=== PATIENT | female | born 1950 | race Two or more races ===

== ENCOUNTER 2023-04-21 23:53 | Emergency (ER) | payer OTHER, MEDICAID ==
[~2023-04-21] VITALS: Ht 149.9 cm; Wt 47.7 kg
[2023-04-22 00:11] VITALS: PULSE 120; RESP 20; O2SAT 95
[2023-04-22] MEDS ORDERED: cloNIDine HCL 0.1 MG TAB PO ONE (00:15)
[2023-04-22 01:31] VITALS: BP 150/97
== END 2023-04-22 01:33 | disposition left against medical advice (07) ==
LOC: ER 23:53
DX: R22.42 Localized swelling, mass and lump, left lower limb (principal); M25.572 Pain in left ankle and joints of left foot; Z53.21 Procedure and treatment not carried out due to patient leaving prior to being seen by health care provider
CPT/HCPCS: 73562

== ENCOUNTER 2024-04-17 08:24 | Inpatient (IN) | payer OTHER, MEDICAID ==
[~2024-04-17] VITALS: Ht 147.3 cm; Wt 48.1 kg
--- NOTE | 2024-04-17 08:39 | ECG ---
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
--- NOTE | 2024-04-17 08:53 | ED.PDOC ---
SOB-HPI HPI Comments 74 Y F BIBA with PMHX of COPD, Asthma, and HTN presents to the ED with CC of SOB. Per EMS, patient has been experiencing SOB x3 days; patient was stating at 93% on room air upon arrival to scene. Patient was given albuterol and ipratropium en route to ED. Patient denies any chest pain , fever, chills, body aches or N/V/D. 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 OFFICER History: No Pertinent FACILITIES OFFICER History Family History Family History: Family hx of DM, Family hx of Cancer, Family hx of heart rajeev, Family hx of stroke Social History Smoker: Cigarettes, Less Than 1 Pack/Day Alcohol: Denies ETOH Use Drugs: Denies Drug Use Lives In: Home Constitutional: denies: chills, diaphoresis, fatigue, fever, malaise, sweats, weakness, others EENTM: denies: blurred vision, double vision, ear bleeding, ear discharge, ear drainage, ear pain, ear ringing, eye pain, eye redness, hearing loss, mouth pain, mouth swelling, nasal discharge, nose bleeding, nose congestion, nose pain, photophobia, tearing, throat pain, throat swelling, voice changes, others Respiratory: reports: shortness of breath; denies: cough, hemoptysis, orthopnea, SOB at rest, SOB with excertion, stridor, wheezing, others Cardiovascular: denies: chest pain, dizzy spells, diaphoresis, Dyspnea on exertion, edema, irregular heart beat, left arm pain, lightheadedness, palpitations, PND, syncope, others Gastrointestinal: denies: abdomen distended, abdominal pain, blood streaked bowels, constipated, diarrhea, dysphagia, difficulty swallowing, hematemesis, melena, nausea, poor appetite, poor fluid intake, rectal bleeding, rectal pain, vomiting, others Neurological: denies: dizziness, fainting, headache, left sided numbness, left sided weakness, numbness, paresthesia, pre-existing deficit, right sided numbness, right sided weakness, seizure, speech problems, tingling, tremors, weakness, others Musculoskeletal: denies: back pain, gout, joint pain, joint swelling, muscle pain, muscle stiffness, neck pain, others Integumetry: denies: bruises, change in color, change in hair/nails, dryness, laceration, lesions, lumps, rash, wounds, others Allergic/Immunocompromised: denies: Difficulty Healing, Frequent Infections, Hives, Itching, others Hematologic/Lymphatic: denies: anemia, blood clots, easy bleeding, easy bruising, swollen glands, others Endocrine: denies: excessive hunger, excessive sweating, excessive thirst, excessive urination, flushing, intolerance to cold, intolerance to heat, unexplained weight gain, unexplained weight loss, others Psychiatric: denies: anxiety, bipolar disorder, depression, hopeless, panic disorder, schizophrenia, sleepless, suicidal, others All Other Systems: Reviewed and Negative Physical Exam General Appearance: Moderate Distress, Normal HEENT: Normal ENT Inspection, Pharynx Normal, TMs Normal Neck: Full Range of Motion, Non-Tender, Normal, Normal Inspection Respiratory: Accessory Muscle Use, Chest Non-Tender, Respiratory Distress Cardiovascular: No Edema, No JVD, No Murmur, No Gallop, Normal Peripheral Pulses, Regular Rate/Rhythm Breast Exam: Deferred Gastrointestinal: No Organomegaly, Non Tender, No Pulsatile Mass, Normal Bowel Sounds, Soft Genitalia: Deferred Pelvic: Deferred Rectal: Deferred Extremities: No calf tenderness, Normal capillary refill, Normal inspection, Normal range of motion, Non-tender, No pedal edema Musculoskeletal : Apperance: Normal 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 Was a procedure done?: No Differential Dx Differential Diagnosis: Anxiety, Asthma, Bronchitis, CHF, COPD, Pneumonia, Sinusitis, Pharyngitis, URI X-Ray, Labs, Meds, VS Vital Signs Date Time Temp Pulse Resp B/P (MAP) Pulse Ox O2 Delivery O2 Flow Rate FiO2 04/17/24 09:05 20 100 Nasal Cannula* 4 36 04/17/24 08:57 20 96 Room Air* 0 21 04/17/24 08:35 98 Nasal Cannula* 2 28 04/17/24 08:29 98.9 118 28 145/91 (109) 100 Lab Test 04/17/24 08:08 Range/Units White Blood Count Pending Red Blood Count Pending Hemoglobin Pending Hematocrit Pending Mean Corpuscular Volume Pending Mean Corpuscular Hemoglobin Pending Mean Corpuscular Hemoglobin Concent Pending Red Cell Distribution Width Pending Platelet Count Pending Mean Platelet Volume Pending Neutrophils (%) (Auto) Pending Lymphocytes (%) (Auto) Pending Monocytes (%) (Auto) Pending Basophils (%) (Auto) Pending Neutrophils # (Auto) Pending Lymphocytes # (Auto) Pending Monocytes # (Auto) Pending Sodium Level Pending Potassium Level Pending Chloride Level Pending Carbon Dioxide Level Pending Anion Gap Pending Blood Urea Nitrogen Pending Creatinine Pending Glomerular Filtration Rate Calc Pending BUN/Creatinine Ratio Pending Serum Glucose Pending Calcium Level Pending Troponin I High Sensitivity Pending Current Medications Medications (Trade) Dose Ordered Sig/Alex Route Start Time Stop Time Status Last Admin Albuterol (Ventolin Medneb) 5 mg ONCE ONCE NEB 04/17/24 08:45 04/17/24 08:46 DC 04/17/24 08:57 Ipratropium [place] (Atrovent Medneb) 0.5 mg ONCE ONCE NEB 04/17/24 08:45 04/17/24 08:46 DC 04/17/24 08:57 [place] [id number] Ph: [phone] DIAGNOSTIC IMAGING Diagnostic Imaging Report : [id number] Signed PATIENT: FROYLAN MORAES ACCT: [id number] UNIT: [id number] : 1950 LOC: ER ROOM / BED: / AGE / SEX: 74 / F ADM STATUS: REG ER SERVICE 0839 ORDERING PHYSICIAN: CRYSTAL HOPE MD PROCEDURE(s): CXRP - CHEST PORTABLE REASON: sob ORDER NUMBER(s): [id number], ACCESSION NUMBER(s): [id number] CHEST RADIOGRAPH Indication: sob Technique: Single frontal view of the chest was obtained COMPARISON: None FINDINGS: Lines and Tubes: None Lungs: Clear Pleura: No effusion. No pneumothorax. Cardiomediastinal contours: Unremarkable Bones: Unremarkable IMPRESSION: No acute disease. ATED BY: FAZAL BARAJAS MD DICTATED DATE/TIME: 04/17/24854 SIGNED BY: FAZAL BARAJAS MD SIGNED DATE/TIME: 04/17/24854 CC: Patient alert. Complaining of shortness a breath. COPD. Continues to smoke cigarettes. Denies chest pain. Saturation on room air was 93%. Placed on oxygen. Counseled patient on effects of smoking cigarettes for 15 minutes. EKG does show chronic changes. Was given breathing treatment. Was given steroid. Reviewed her previous visit. Explained to the patient. Time of 1ST Reevaluation: 09:07 Reevaluation 1ST: Unchanged Patient Education/Counseling: Diagnosis, Treatment Family Education/Counseling: No Family Present Departure 1 Departure Time of Disposition: 08:57 Impression: Primary Impression: Acute respiratory failure Qualified Codes: J96.01 - Acute respiratory failure with hypoxia Additional Impressions: COPD exacerbation Pneumonitis Disposition: ADMITTED INPATIENT Admit to: Med Surg Condition: Guarded Critical Care Note Critical Care Time?: Yes (90 min-critical care time only) Stability Stability form required: No Heart Score Heart Score: Heart Score Response (Comments) Value History Slightly Suspicious 0 EKG Normal 0 Age >65 2 Risk Factors >3 or Hx ASHD 2 Troponin Normal limit 0 Total 4 I personally scribed for CRYSTAL HOPE MD ([email or web address]) on 04/17/24 at 08:53. Electronically submitted by Nighat Richter ([email or web address]). I personally scribed for CRYSTAL HOPE MD ([email or web address]) on 04/17/24 at 09:17. Electronically submitted by Nighat Richter ([email or web address]). CRYSTAL HOPE MD Apr 17, 2024 08:53
[2024-04-17] MEDS: IPRATROPIUM BROM 0.5 MG/2.5ML INH SOL NEB ONE (08:57)
[2024-04-17] MEDS: ALBUTEROL SULF 2.5 MG/0.5ML(0.5%) NEB SOLN NEB ONE (08:57)
--- NOTE | 2024-04-17 08:58 | DVH ---
CHEST RADIOGRAPH Indication: sob Technique: Single frontal view of the chest was obtained COMPARISON: None FINDINGS: Lines and Tubes: None Lungs: Clear Pleura: No effusion. No pneumothorax. Cardiomediastinal contours: Unremarkable Bones: Unremarkable IMPRESSION: No acute disease.
[2024-04-17 09:21] LABS: Basophils # (auto) 0 10 ^3/uL (0-0.2); Basophils % (auto) 0.6 % (0.0-2.0); Eosinophils # (auto) 0 10 ^3/uL (0-0.8); Eosinophils % (auto) 0.1 % (0.0-7.0); Hematocrit 41.2 % (36.0-46.0); Hemoglobin 13.7 g/dL (12.2-16.2); Lymphocytes # (auto) 0.5 10 ^3/uL (0.4-5.4); Lymphocytes % (auto) 7.6 % (10.0-50.0); Mean Corpuscular Hemoglobin 32.5 pg (28.0-32.0); Mean Corpuscular Hgb Conc. 33.4 g/dL (32.0-36.0); Mean Corpuscular Volume 97.5 fL (80.0-100.0); Monocytes # (auto) 0.5 10 ^3/uL (0-1.3); Monocytes % (auto) 7.9 % (0.0-12.0); Neutrophils # (auto) 5.1 10 ^3/uL (1.6-8.6); Neutrophils % (auto) 83.8 % (37.0-80.0); Platelet Count (auto) 272 10^3/uL (140-450); Red Blood Cells 4.23 10^6/uL (4.0-5.20); Red Cell Distribution Width 13.7 % (11.8-14.3); White Blood Cell 6.1 10^3/uL (4.4-10.8)
[2024-04-17 09:28] LABS: Chloride 102 mmol/L (98-107); Potassium 3.6 mmol/L (3.5-5.1); Sodium 138 mmol/L (136-145)
[2024-04-17 09:29] LABS: Anion Gap 8 (5-15); Carbon Dioxide 28 mmol/L (20-31)
[2024-04-17 09:34] LABS: Blood Urea Nitrogen 13 mg/dL (9-23)
[2024-04-17 09:41] LABS: Glucose 189 mg/dL (74-106)
[2024-04-17] MEDS: methylPREDNISolone SOD SUCC 125 MG/2 ML VL IV ONE (11:29)
[2024-04-17] MEDS: MAGNESIUM SULFATE 1GM/100ML 100 ML IV ONE (13:37)
[2024-04-17] MEDS ORDERED: DOCUSATE SOD 100 MG CAP PO PRN (17:00)
[2024-04-17] MEDS ORDERED: NITROGLYCERIN 0.4 MG SL TAB SL PRN (17:00)
[2024-04-17] MEDS ORDERED: ONDANSETRON HCL 4 MG/2 ML VIAL IV PRN (17:00)
[2024-04-17] MEDS ORDERED: MORPHINE SULFATE INJ 2 MG/ml SYRG IV PRN (17:00)
[2024-04-17] MEDS: ASPirin-EC 81 mg tab PO ONE (17:06)
[2024-04-17 19:01] VITALS: PULSE 109; RESP 20; O2SAT 98
[2024-04-17] MEDS: ALBUTEROL SULF 2.5 MG/0.5ML(0.5%) NEB SOLN NEB SCH (19:01)
[2024-04-17] MEDS: IPRATROPIUM BROM 0.5 MG/2.5ML INH SOL NEB SCH (19:01)
[2024-04-17 19:09] VITALS: PULSE 97; RESP 22; O2SAT 97
[2024-04-17 20:29] VITALS: BP 146/90; PULSE 101; RESP 20; O2SAT 99
[2024-04-17 21:57] VITALS: PULSE 100; RESP 19; O2SAT 98
[2024-04-17 22:24] VITALS: BP 146/90; PULSE 101; RESP 20; TEMP 99.4; O2SAT 99
[2024-04-17 22:29] VITALS: BP 146/90; PULSE 101; RESP 20; TEMP 99.4; O2SAT 99
[2024-04-17] MEDS: ACETAMINOPHEN 325 MG TAB PO PRN (22:45)
[2024-04-17] MEDS: methylPREDNISolone SOD SUCC 40 MG/ML VL IV SCH (22:45)
[2024-04-17] MEDS ORDERED: INFLUENZA TRIVALENT 2024-2025 0.5 ML INJ IM ONE (23:30)
[2024-04-18] VITALS (22 sets, daily range): BP systolic 112–155; BP diastolic 59–74; PULSE 95–111; RESP 16–22; TEMP 97.8–98.9; O2SAT 90–100
--- NOTE | 2024-04-18 00:16 | DVHHP2 ---
YASMIN MONTERO DIPPER FISH 04/18/24 0016: History of Present Illness Reason for Visit: Shortness of breath History of Present Illness 74-year-old female with past medical history of COPD, asthma, hypertension presents with complaints Of shortness of breath times three days. When EMS encountered the patient, Patient was treated with dual med nebs Which gave the patient temporary relief. At this time patient denies fevers, chills, Dizziness, syncope,Chest pain, nausea, vomiting. Cardiovascular: HTN Pulmonary: Asthma, COPD Smoke: 1 pack per day ALCOHOL: none Drugs: None Lives: with Family Review of Systems Constitutional: No: Fever, Chills, Sweats, Weakness, Malaise, Other Eyes: No: Pain, Vision change, Conjunctivae inflammation, Eyelid inflammation, Other, Redness ENT: No: Ear pain, Ear discharge, Nose pain, Nose discharge, Nose congestion, Mouth pain, Mouth swelling, Throat pain, Throat swelling, Other Respiratory: Shortness of breath; No: Cough, Dry, SOB with excertion, Wheezing, Hemoptysis, Pleuritic Pain, Sputum, Wheezing, Other Cardiovascular: No: Chest Pain, Palpitations, Orthopnea, Paroxysmal Noc. Dyspnea, Edema, Lt Headedness, Other Gastrointestinal: No: Nausea, Vomiting, Abdominal Pain, Diarrhea, Constipation, Melena, Hematochezia, Other Genitourinary: No Dysuria, No Frequency, No Incontinence, No Hematuria, No Retention, No Other Musculoskeletal: No: other, neck pain, shoulder pain, arm pain, back pain, hand pain, leg pain, foot pain Skin: No: Rash, Lesions, Jaundice, Bruising, Other Neurological: No: Weakness, Numbness, Incoordination, Change in speech, Confusion, Seizures, Other Allergies: Coded Allergies: Penicillins (Verified Allergy, Unknown, 04/22/23) Warfarin (Verified Allergy, Unknown, 04/22/23) Medications Current Medications Medications Dose Ordered Sig/Alex Route Start Time Stop Time Status Last Admin Dose Admin Ondansetron HCl 4 mg Q4HP PRN IV 04/17/24 17:00 Docusate Sodium 100 mg BIDPRN PRN PO 04/17/24 17:00 Enoxaparin Sodium 40 mg DAILY SC 04/18/24 10:00 Acetaminophen 650 mg Q6HP PRN PO 04/17/24 17:00 04/17/24 22:45 650 MG Morphine Sulfate 2 mg Q4HPRN PRN IV 04/17/24 17:00 Nitroglycerin 0.4 mg Q5MINP PRN SL 04/17/24 17:00 Morphine Sulfate 2 mg Q30M PRN IV 04/17/24 17:00 Albuterol 2.5 mg Q4HWA [facility] 04/17/24 18:00 04/17/24 19:01 2.5 MG Ipratropium [place] 0.5 mg Q4HWA [facility] 04/17/24 18:00 04/17/24 19:01 0.5 MG Methylprednisolone Sodium Succinate 40 mg Q8HR IV 04/17/24 22:00 04/17/24 22:45 40 MG Exam Vital Signs Vital Signs Date Time Temp Pulse Resp B/P (MAP) Pulse Ox O2 Delivery O2 Flow Rate FiO2 04/17/24 22:29 99.4 101 20 146/90 (108) 99 99.4 04/17/24 21:57 Nasal Cannula* 4 36 General Appearance: Alert, Oriented X3, Cooperative HEENT: Atraumatic, PERRLA, EOMI Respiratory: Clear to auscultation, Other (Diminished air exchange Bilaterally) Cardiovascular: Regular rate, Normal S1, Normal S2 Abdominal: Normal bowel sounds, Soft, No tenderness Extremities: No cyanosis, No edema Skin: No rashes, No breakdown Neuro: Normal speech, Strength at 5/5 X4 ext Psych/Mental Status: Mental status NL, Mood NL Labs/Xrays Labs Test 04/17/24 08:08 Range/Units White Blood Count 6.1 4.4-10.8 10^3/uL Red Blood Count 4.23 4.0-5.20 10^6/uL Hemoglobin 13.7 12.2-16.2 g/dL Hematocrit 41.2 36.0-46.0 % Mean Corpuscular Volume 97.5 80.0-100.0 fL Mean Corpuscular Hemoglobin 32.5 H 28.0-32.0 pg Mean Corpuscular Hemoglobin Concent 33.4 32.0-36.0 g/dL Red Cell Distribution Width 13.7 11.8-14.3 % Platelet Count 272 140-450 10^3/uL Mean Platelet Volume 8.5 6.9-10.8 fL Neutrophils (%) (Auto) 83.8 H 37.0-80.0 % Lymphocytes (%) (Auto) 7.6 L 10.0-50.0 % Monocytes (%) (Auto) 7.9 0.0-12.0 % Eosinophils (%) (Auto) 0.1 0.0-7.0 % Basophils (%) (Auto) 0.6 0.0-2.0 % Neutrophils # (Auto) 5.1 1.6-8.6 10 ^3/uL Lymphocytes # (Auto) 0.5 0.4-5.4 10 ^3/uL Monocytes # (Auto) 0.5 0-1.3 10 ^3/uL Eosinophils # (Auto) 0 0-0.8 10 ^3/uL Basophils # (Auto) 0 0-0.2 10 ^3/uL Nucleated Red Blood Cells 0.0 % Sodium Level 138 136-145 mmol/L Potassium Level 3.6 3.5-5.1 mmol/L Chloride Level 102 98-107 mmol/L Carbon Dioxide Level 28 20-31 mmol/L Anion Gap 8 5-15 Blood Urea Nitrogen 13 9-23 mg/dL Creatinine 0.93 0.550-1.02 mg/dL Glomerular Filtration Rate Calc 65 >90 mL/min BUN/Creatinine Ratio 14.0 10.0-20.0 Serum Glucose 189 H 74-106 mg/dL Calcium Level 10.0 8.7-10.4 mg/dL Troponin I High Sensitivity 7 </=34 ng/L Assessment/Plan Assessment/Plan Acute on Chronic respiratory failure with hypoxia Acute COPD exacerbation Hypertension Nicotine dependence Plan Admit telemetry Bronchodilators. As needed supplemental O2 to maintain O2 saturation greater Than 93%. RT monitoring. IV Steroids. Continue home medication. As needed anti-hypertensive for optimal BP management Nicotine cessation counseling Physical therapy evaluation GI ppx Protonix / DVT ppx lovenox Plan discussed with: Patient Date of Service: Apr 18, 2024 Billing Provider: SHERYL MONTANA MD Common Visit Codes: NOT BILLABLE SHERYL MONTANA MD 04/18/24 1757: Review of Systems Allergies: Coded Allergies: Penicillins (Verified Allergy, Unknown, 04/22/23) Warfarin (Verified Allergy, Unknown, 04/22/23) Additional Comments Additional Comments Additional Comments 74-year-old female with a known history of chronic COPD, chronic respiratory failure on home O2 at 3 L, chronic tobacco use disorder initially presented to the hospital with the increasing shortness a breath and chest pain and back pain found to have 1. Acute on chronic hypoxic respiratory failure secondary to acute COPD exacerbation 2. Acute COPD exacerbation 3. Chronic respiratory failure on home O2 4. Chronic tobacco use disorder 5. Hypertension -continue med nebs, [id number] supplementation Physical therapy evaluation and treatment -incentive spirometry YASMIN MONTERO NP Apr 18, 2024 00:16 SHERYL MONTANA MD Apr 18, 2024 17:57
[2024-04-18 01:16] LABS: Urine Bacteria FEW /hpf (None Seen); Urine Blood Negative /uL (Negative); Urine Clarity Clear (Clear); Urine Color Light-Yellow (Yellow); Urine Protein, UAD TRACE (Negative); Urine Specific Gravity 1.017 (1.001-1.035); Urine Squamous Epithelial Cell FEW /hpf (<5); Urine Urobilinogen Normal (Negative); Urine WBC 1 /hpf (0 - 5); Urine pH 5.5 (5.0-9.0)
[2024-04-18 09:53] LABS: Basophils # (auto) 0 10 ^3/uL (0-0.2); Basophils % (auto) 0.1 % (0.0-2.0); Eosinophils # (auto) 0 10 ^3/uL (0-0.8); Hematocrit 35.6 % (36.0-46.0); Hemoglobin 12.1 g/dL (12.2-16.2); Lymphocytes # (auto) 0.2 10 ^3/uL (0.4-5.4); Lymphocytes % (auto) 6.3 % (10.0-50.0); Mean Corpuscular Hemoglobin 32.8 pg (28.0-32.0); Mean Corpuscular Hgb Conc. 33.9 g/dL (32.0-36.0); Mean Corpuscular Volume 96.7 fL (80.0-100.0); Monocytes # (auto) 0.1 10 ^3/uL (0-1.3); Monocytes % (auto) 4.1 % (0.0-12.0); Neutrophils # (auto) 2.2 10 ^3/uL (1.6-8.6); Neutrophils % (auto) 89.5 % (37.0-80.0); Nucleated Red Blood Cells % 0.1 %; Platelet Count (auto) 231 10^3/uL (140-450); Red Blood Cells 3.68 10^6/uL (4.0-5.20); Red Cell Distribution Width 13.5 % (11.8-14.3); White Blood Cell 2.5 10^3/uL (4.4-10.8)
[2024-04-18 09:59] LABS: Alanine Aminotransferase 14 U/L (7-40); Alkaline Phosphatase 101 U/L (46-116); Anion Gap 10 (5-15); Aspartate Aminotransferase 19 U/L (13-40); BUN/Creatinine Ratio 21.2 (10.0-20.0); Bilirubin, Total 0.5 mg/dL (0.2-1.0); Blood Urea Nitrogen 22 mg/dL (9-23); Calcium 9.6 mg/dL (8.7-10.4); Carbon Dioxide 26 mmol/L (20-31); Chloride 103 mmol/L (98-107); Potassium 4.1 mmol/L (3.5-5.1); Sodium 139 mmol/L (136-145); Total Protein 6.2 g/dL (5.7-8.2)
[2024-04-18 10:09] LABS: Glucose 266 mg/dL (74-106)
[2024-04-18] MEDS: ENOXAPARIN SOD 40 MG/0.4 ML SYRINGE SC SCH (10:28)
[2024-04-18] MEDS: MORPHINE SULFATE INJ 2 MG/ml SYRG IV PRN (10:35)
[2024-04-19] VITALS (18 sets, daily range): BP systolic 111–138; BP diastolic 61–77; PULSE 84–102; RESP 16–20; TEMP 97.7–98.1; O2SAT 88–99
--- NOTE | 2024-04-19 16:28 | DVHPN2 ---
Progress Note - Dictate Date Seen: Apr 19, 2024 Medical Necessity Reason Pt with a Central, PICC or Fol: No Subjective Says her shortness for breath has improved today. She was on her baseline 3 L oxygen via nasal cannula. Physical therapy is evaluating her for her activity/ambulatory status. vital signs Vital Sign Date Time Temp Pulse Resp B/P (MAP) Pulse Ox O2 Delivery O2 Flow Rate FiO2 04/19/24 13:26 86 16 98 04/19/24 13:20 Nasal Cannula 3.0 04/19/24 13:20 32 04/19/24 13:14 124/68 04/19/24 11:59 98.0 98.0 Total Intake and Output 04/18/24 04/18/24 04/19/24 15:00 23:00 07:00 Intake Total 460 ml 1080 ml 895 ml Output Total 700 ml Balance 460 ml 1080 ml 195 ml medications Current Medications Medications Dose Ordered Sig/Alex Route Start Time Stop Time Status Last Admin Dose Admin Ondansetron HCl 4 mg Q4HP PRN IV 04/17/24 17:00 Docusate Sodium 100 mg BIDPRN PRN PO 04/17/24 17:00 Enoxaparin Sodium 40 mg DAILY SC 04/18/24 10:00 04/19/24 08:56 40 MG Acetaminophen 650 mg Q6HP PRN PO 04/17/24 17:00 04/17/24 22:45 650 MG Morphine Sulfate 2 mg Q4HPRN PRN IV 04/17/24 17:00 04/19/24 12:44 2 MG Nitroglycerin 0.4 mg Q5MINP PRN SL 04/17/24 17:00 Morphine Sulfate 2 mg Q30M PRN IV 04/17/24 17:00 Albuterol 2.5 mg Q4HWA NEB 04/17/24 18:00 04/19/24 13:20 2.5 MG Ipratropium [place] 0.5 mg Q4HWA NEB 04/17/24 18:00 04/19/24 13:20 0.5 MG Methylprednisolone Sodium Succinate 40 mg Q8HR IV 04/17/24 22:00 04/19/24 14:29 40 MG Budesonide 0.5 mg BID NEB 04/19/24 22:00 Doxycycline Hyclate 250 ml @ 125 mls/hr Q12H IV 04/19/24 15:30 Acetylcysteine 100 mg Q8HR NEB 04/19/24 22:00 objective Elderly female comfortable lying in bed without any acute cardiopulmonary distress. Nurse at bedside. HEENT neck supple no JVD. Heart regular rate and rhythm S1-S2. Lungs fair air movement with occasional end expiratory wheezing at the bases. No audible rales or rhonchi noted. Chest tube will expansion. Abdomen is soft nontender positive bowel sounds. Extremities no edema positive distal pedal pulses. laboratory and microbiology Laboratory Tests 04/18/24 09:17 Test 04/18/24 09:17 Range/Units Serum Glucose 266 H 74-106 mg/dL Assessment/Plan I will add inhaled steroids as well as Mucomyst mucolytic agent. Patient encouraged activity and ambulation. We will arrange home health for physical therapy as well as home med nebulizer. Monitor overnight. If she remains stable consider discharge home tomorrow. Discussed with the patient and nurse regarding care plan at bedside. Problems(with codes): (1) Acute respiratory failure (2) COPD exacerbation (3) Pneumonitis Dietary Evaluation Review Comments: 1) Continue current plan of care Expected Outcomes/Goals: F/U in 3-5 days Plan discussed with: Patient, Other HUGH DELGADO MD Apr 19, 2024 16:28
[2024-04-19] MEDS: DOXYCYCLINE 100MG/250ML 250 ML IV SCH (17:33)
[2024-04-19 18:31] LABS: Rapid Influenza A Negative (Negative); Rapid Influenza B Negative (Negative)
[2024-04-19 18:32] LABS: COVID19 ANTIGEN SOFIA FIA NEGATIVE (NEGATIVE)
[2024-04-19] MEDS: BUDESONIDE (INHALATION) 0.5 MG/2 ML NEB NEB SCH (22:25)
[2024-04-19] MEDS: ACETYLCYSTEINE 10 %(100MG/ML) SOL 4ML NEB SCH (22:25)
[2024-04-20] VITALS (13 sets, daily range): BP systolic 115–155; BP diastolic 56–84; PULSE 69–95; RESP 16–19; TEMP 36.6; O2SAT 91–100
[2024-04-20 08:06] LABS: Calcium 9.6 mg/dL (8.7-10.4); Chloride 105 mmol/L (98-107); Potassium 4.5 mmol/L (3.5-5.1); Sodium 139 mmol/L (136-145)
[2024-04-20 08:09] LABS: Basophils # (auto) 0 10 ^3/uL (0-0.2); Basophils % (auto) 0.1 % (0.0-2.0); Eosinophils # (auto) 0 10 ^3/uL (0-0.8); Hematocrit 39.3 % (36.0-46.0); Hemoglobin 12.8 g/dL (12.2-16.2); Lymphocytes # (auto) 0.3 10 ^3/uL (0.4-5.4); Lymphocytes % (auto) 5.9 % (10.0-50.0); Mean Corpuscular Hemoglobin 32.6 pg (28.0-32.0); Mean Corpuscular Hgb Conc. 32.7 g/dL (32.0-36.0); Mean Corpuscular Volume 99.7 fL (80.0-100.0); Monocytes # (auto) 0.2 10 ^3/uL (0-1.3); Monocytes % (auto) 3.3 % (0.0-12.0); Neutrophils # (auto) 5.3 10 ^3/uL (1.6-8.6); Neutrophils % (auto) 90.7 % (37.0-80.0); Platelet Count (auto) 242 10^3/uL (140-450); Red Blood Cells 3.94 10^6/uL (4.0-5.20); Red Cell Distribution Width 13.9 % (11.8-14.3); White Blood Cell 5.9 10^3/uL (4.4-10.8)
[2024-04-20 08:24] LABS: Blood Urea Nitrogen 27 mg/dL (9-23); Glucose 145 mg/dL (74-106)
[2024-04-20 08:53] LABS: Anion Gap 9 (5-15); Carbon Dioxide 25 mmol/L (20-31)
[2024-04-20 10:43] LABS: Hepatitis B Surface Antigen Negative (Negative)
[2024-04-20 12:01] LABS: Hepatitis C Antibody Negative (Negative)
[2024-04-20] MEDS ORDERED: DOXY100C79 PO (14:15)
[2024-04-20] MEDS ORDERED: ALBU108A5 IN (14:15)
[2024-04-20] MEDS ORDERED: PRED20TA2 PO ×2 (14:15→14:43)
[2024-04-20] MEDS ORDERED: IPRA0.00 IN (14:15)
[2024-04-20] MEDS ORDERED: BUDE0.5S IN (14:15)
--- NOTE | 2024-04-20 14:16 | DVHDS2 ---
Discharge Summary Date of Admission Apr 17, 2024 at 16:58 Date of Discharge: Apr 20, 2024 Admitting Diagnosis Short of breath Labs/Diagnostic Data: Laboratory Results Test 04/20/24 06:49 04/19/24 16:30 04/18/24 09:17 04/17/24 12:50 White Blood Count 5.9 10^3/uL (4.4-10.8) Red Blood Count 3.94 10^6/uL (4.0-5.20) Hemoglobin 12.8 g/dL (12.2-16.2) Hematocrit 39.3 % (36.0-46.0) Mean Corpuscular Volume 99.7 fL (80.0-100.0) Mean Corpuscular Hemoglobin 32.6 pg (28.0-32.0) Mean Corpuscular Hemoglobin Concent 32.7 g/dL (32.0-36.0) Red Cell Distribution Width 13.9 % (11.8-14.3) Platelet Count 242 10^3/uL (140-450) Mean Platelet Volume 9.3 fL (6.9-10.8) Neutrophils (%) (Auto) 90.7 % (37.0-80.0) Lymphocytes (%) (Auto) 5.9 % (10.0-50.0) Monocytes (%) (Auto) 3.3 % (0.0-12.0) Eosinophils (%) (Auto) 0.0 % (0.0-7.0) Basophils (%) (Auto) 0.1 % (0.0-2.0) Neutrophils # (Auto) 5.3 10 ^3/uL (1.6-8.6) Lymphocytes # (Auto) 0.3 10 ^3/uL (0.4-5.4) Monocytes # (Auto) 0.2 10 ^3/uL (0-1.3) Eosinophils # (Auto) 0 10 ^3/uL (0-0.8) Basophils # (Auto) 0 10 ^3/uL (0-0.2) Nucleated Red Blood Cells 0.0 % Sodium Level 139 mmol/L (136-145) Potassium Level 4.5 mmol/L (3.5-5.1) Chloride Level 105 mmol/L (98-107) Carbon Dioxide Level 25 mmol/L (20-31) Anion Gap 9 (5-15) Blood Urea Nitrogen 27 mg/dL (9-23) Creatinine 1.04 mg/dL (0.550-1.02) Glomerular Filtration Rate Calc 56 mL/min (>90) BUN/Creatinine Ratio 26.0 (10.0-20.0) Serum Glucose 145 mg/dL (74-106) Calcium Level 9.6 mg/dL (8.7-10.4) Influenza Type A Antigen Negative (Negative) Influenza Type B Antigen Negative (Negative) SARS-CoV-2 Antigen (Rapid) Negative (NEGATIVE) Total Bilirubin 0.5 mg/dL (0.2-1.0) Aspartate Amino Transferase (AST) 19 U/L (13-40) Alanine Aminotransferase (ALT) 14 U/L (7-40) Alkaline Phosphatase 101 U/L (46-116) Total Protein 6.2 g/dL (5.7-8.2) Albumin 4.0 g/dL (3.2-4.8) Urine Color Light-yellow (Yellow) Urine Clarity Clear (Clear) Urine pH 5.5 (5.0-9.0) Urine Specific [place] 1.017 (1.001-1.035) Urine Protein Trace (Negative) Urine Ketones Trace (Negative) Urine Blood Negative /uL (Negative) Urine Nitrite Negative (Negative) Urine Bilirubin Negative (Negative) Urine Urobilinogen Normal mg/dL (Negative) Urine Leukocyte Esterase Negative /uL (Negative) Urine RBC 1 /hpf (0 - 4) Urine WBC 1 /hpf (0 - 5) Urine Squamous Epithelial Cells Few /hpf (<5) Urine Bacteria Few /hpf (None Seen) Urine Glucose Normal mg/dL (Normal) Test 04/17/24 08:08 Troponin I High Sensitivity 7 ng/L (</=34) Hepatitis B Surface Antigen Negative (Negative) Hepatitis C Antibody Negative (Negative) Other Laboratory Tests 04/20/24 06:49 Brief Hx & Hospital Course: 74-year-old female with past medical history of COPD, asthma, hypertension presents with complaints Of shortness of breath times three days. When EMS encountered the patient, Patient was treated with dual med nebs Which gave the patient temporary relief. At this time patient denies fevers, chills, Dizziness, syncope,Chest pain, nausea, vomiting. She is admitted and treated for her COPD exacerbation. Patient made slow but steady recovery. She was back to baseline 3 L home oxygen oxygenating well. She was getting out of bed ambulating with physical therapy. Patient at home med nebulizer arranged and advised to continue the breathing treatments as prescribed by a med nebulizer. I have talked with the patient regarding her hospital diagnosis, treatment she received, discharge medications and follow-up plan of care. She has verbalized understanding of these and given clinically stable back to baseline normal status being discharged home in stable condition. Condition at Discharge: Stable Final Diagnosis/Problems List COPD exacerbation Discharge Disposition: Home Discharge Instruct/Medications Diet: Consistent carbohydrate, Cardiac 2g Na,low cholest Activity: No Restrictions, As Tolerated Activity comment: To continue home oxygen 3 L via nasal cannula at all times Follow Up/Referral: With your primary care doctor 1 week for COPD management Medications: Take breathing treatments with nebulized as prescribed and other medications as prescribed for discharge med list New Medications: Albuterol Sulfate (Albuterol Sulfate Hfa) 108 Mcg/Act Aer 108 MCG IN Q4HPRN PRN, #1 AER Budesonide (Inhalation) (Budesonide) 0.5 Mg/2 Ml Mariela 0.5 MG IN BID, #10 ML Doxycycline (Monohydrate) (Doxycycline) 100 Mg Cap 100 MG PO BID, #10 CAP Ipratropium-Albuterol (Ipratropium [place]/Albut) 1 Jarad Jarad 1 JARAD IN TID, #90 ML Prednisone (Prednisone) 20 Mg Tab 20 MG PO BID, #14 MG Discharge Statement: "Patient was advised to return to the ER or call 911 if any headaches, dizziness, shortness of breath, chest pain, abdominal pain, bleeding, fevers, or worsening of medical condition. Patient was counseled about treatment plan, medications, possible side effects, patientverbalized understanding. All questions were answered to the best of my ability. This discharge took greater then 30 minutes in planning, reviewing documentation, counseling the patient, and discussing with other team members." ASSESSMENT ASSESSMENT Assessment COPD exacerbation HUGH DELGADO MD Apr 20, 2024 14:16
== END 2024-04-20 19:45 | disposition home health service (06) | DRG 189 ==
LOC: ER 08:24 → EDBD 08:24 → TELE 16:58 → TELE-WESTW 22:13
PROVIDERS: ADMIT Internal Medicine; ATTEND Internal Medicine
DX: J96.21 Acute and chronic respiratory failure with hypoxia (principal); J44.1 Chronic obstructive pulmonary disease with (acute) exacerbation; J98.4 Other disorders of lung; Z20.822 Contact with and (suspected) exposure to COVID-19; F17.210 Nicotine dependence, cigarettes, uncomplicated; Z99.81 Dependence on supplemental oxygen; Z88.0 Allergy status to penicillin; Z83.3 Family history of diabetes mellitus; I10 Essential (primary) hypertension; Z82.3 Family history of stroke; Z79.899 Other long term (current) drug therapy
CPT/HCPCS: 36415; 71045; 80048; 80053; 81001; 84484; 85025; 86803; 87340; 87426; 87804; 93005; 94640; 96365; 96375; 97110; 97116; 97163; 97530; 99291; 99292; G0378; J3490